=== PATIENT | female | born 1930 | race Caucasian/White ===

== ENCOUNTER 2017-05-01 15:59 | Inpatient (IN) | payer MEDICARE, OTHER ==
[~2017-05-01] VITALS: Ht 157.5 cm; Wt 63.5 kg
[2017-05-01] MEDS ORDERED: HYDROCODONE/APAP 5-325MG TABLET PO PRN (19:00)
[2017-05-01] MEDS ORDERED: MAGNESIUM HYDROXIDE 30 ML LIQUID UDC PO PRN (19:00)
[2017-05-01] MEDS ORDERED: ZOLPIDEM 5 MG TABLET PO PRN (19:00)
[2017-05-01] MEDS ORDERED: Z GUARD REMEDY PASTE 57 GM TUBE TOP PRN (19:00)
[2017-05-01] MEDS ORDERED: ONDANSETRON 4 MG/2 ML VIAL IV PRN (19:00)
[2017-05-01] MEDS ORDERED: ACETAMINOPHEN 325 MG TABLET PO PRN (19:00)
[2017-05-01] MEDS ORDERED: BACL10TA PO (19:16)
[2017-05-01] MEDS ORDERED: DONE5TAB34 PO (19:16)
[2017-05-01] MEDS ORDERED: ERGO500014 PO (19:16)
[2017-05-01] MEDS ORDERED: OMEP20TA20 PO (19:16)
[2017-05-01] MEDS ORDERED: ANAS1TAB8 PO (19:16)
[2017-05-01] MEDS ORDERED: ACET-73 PO (19:16)
[2017-05-01] MEDS ORDERED: LOSA1TAB9 PO (19:16)
[2017-05-01] MEDS ORDERED: DICL100G16 TP (19:16)
[2017-05-01] MEDS ORDERED: CYAN10009 PO (19:16)
[2017-05-01] MEDS ORDERED: MELO-107 PO (19:16)
[2017-05-01] MEDS ORDERED: CLOP75TA15 PO (19:16)
[2017-05-01] MEDS ORDERED: AMLO5TAB4 PO (19:16)
[2017-05-01] MEDS ORDERED: HYDR59LO5 TP (19:16)
[2017-05-01] MEDS ORDERED: Medication Not On Formulary EA (Meloxicam 15 MG) PO PRN (20:30)
[2017-05-01] MEDS ORDERED: VOLTAREN GEL XX PRN (20:30)
[2017-05-01 20:36] VITALS: BP 167/64
[2017-05-01] MEDS: DONEPEZIL 5 MG TABLET PO SCH (20:56)
[2017-05-01] MEDS ORDERED: DOCUSATE SODIUM 100 MG CAPSULE PO SCH (21:00)
--- NOTE | 2017-05-01 21:30 | NUR ---
Patient admitted to ARU at 1900. Transferred from [facility] in an ambulance via gurney. Patient stable at the time of transfer. Farsi speaking. AAO X3. No acute distress noted. No c/o pain or discomfort. Oriented patient to unit and equipment. MD notified regarding admission and medication reconciliation. Routine admission done. Safety measures maintained. Call light within reach. Will continue to monitor.
[2017-05-01] MEDS: HYDROCORTISONE 2.5 % RECTAL CREAM 28.35 GM TUBE RC SCH (22:31)
--- NOTE | 2017-05-02 05:43 | NUR ---
Patient slept intermittently at night. Assisted to the bathroom multiple times, had BM in my shift. Minimal assist with cane. All needs attended to promptly. Medications given as prescribed and needed. No acute distress noted. No c/o pain or discomfort. Will endorse to day shift RN. Continue to monitor.
[2017-05-02] MEDS: PANTOPRAZOLE SODIUM 40 MG TABLET.DR PO SCH (06:10)
[2017-05-02] MEDS ORDERED: PANTOPRAZOLE SODIUM 40 MG TABLET.DR PO SCH (07:00)
[2017-05-02 08:00] VITALS: BP 178/67
[2017-05-02] MEDS: BACLOFEN 10 MG TABLET PO SCH ×3 (08:23→17:08)
[2017-05-02] MEDS: CLOPIDOGREL 75 MG TABLET PO SCH (08:24)
[2017-05-02] MEDS: LOSARTAN POTASSIUM 50 MG TABLET PO SCH (08:24)
[2017-05-02] MEDS: MELOXICAM 7.5 MG TABLET PO SCH (08:25)
[2017-05-02] MEDS: HYDROCHLOROTHIAZIDE 12.5 MG CAPSULE PO SCH (08:25)
[2017-05-02] MEDS: CYANOCOBALAMIN 1,000 MCG TABLET PO SCH (08:28)
[2017-05-02] MEDS: AMLODIPINE 5 MG TABLET PO SCH (08:28)
[2017-05-02] MEDS: HYDROCORTISONE 2.5 % RECTAL CREAM 28.35 GM TUBE RC SCH ×2 (08:30→17:08)
[2017-05-02] MEDS: ANASTROZOLE 1 MG TABLET PO SCH (08:30)
[2017-05-02] MEDS ORDERED: HYDROCORTISONE 2.5% LOTION 59 ML BOTTLE TP SCH (09:00)
[2017-05-02] MEDS ORDERED: VOLTAREN GEL TP PRN (09:00)
[2017-05-02] MEDS ORDERED: MISCELLANEOUS MED TP PRN (10:00)
--- NOTE | 2017-05-02 10:39 | NUR ---
received report from shift coordinator nurse. pt seen on rounding. pt stable. bp elevated. md aware. pt given bp meds to decrease bp. will reassess bp. other vitals stable. pt tolerates room air. pt afebrile. no signs of acute distress. pt assisted to the bathroom. pt is min assist on transfer and contact on walking. pt is alert and oriented x2. fall precautions implemented. no dysphagia noted. will continue to monitor.
--- NOTE | 2017-05-02 19:23 | NUR ---
pt stable throughtout the day. pt shows confusion throuhgout the day. bp dropped to normal levels after meds were given. pt takes pills whole. pt had bm and voided. no new injuries noted. pt seen by md curran. no new orders. will endorse to shift supervisor rn nurse.
[2017-05-02 20:00] VITALS: BP 112/46
[2017-05-02] MEDS: DONEPEZIL 5 MG TABLET PO SCH (20:30)
[2017-05-02] MEDS: ACETAMINOPHEN ES 500 MG TABLET PO PRN (23:12)
[2017-05-03] MEDS: ACETAMINOPHEN ES 500 MG TABLET PO PRN (03:11)
--- NOTE | 2017-05-03 05:46 | NUR ---
PT SLEPT INTERMITTENTLY THROUGH THE NIGHT, PT WAS ALERT AND ORIENTED TO SELF ONLY AT START OF SHIFT BUT WAS COOPERATIVE, THE NIGHT PROGRESSED PT BECAME INTERMITTENTLY DISORIENTED AND RESTLESS. PT DENIED HAVING ANY DIZZINESS. PT WITH MINIMAL ASSISTANCE PERFORM ADL'S. ALL NEEDS MET, SAFETY MEASURES ARE IN PLACE, CALL LIGHT WITHIN REACH, BED ALARM IS ON. Addendum: 05/03/17 at 0643 by ANNA TESFAYE RN PT UPON WAKING UP WAS MORE ALERT AND LESS DISORIENTED THEN FDURING THE NIGHT. PT WAS ALERT TO SELF AND PLACE
[2017-05-03] MEDS: PANTOPRAZOLE SODIUM 40 MG TABLET.DR PO SCH (06:41)
--- NOTE | 2017-05-03 07:15 | NUR ---
Receievd patient asleep, lying on bed on a semi- yeboah's position with her call light within reach. Easily aroused. All needs were attended and anticipated. Will continue to monitor.
[2017-05-03 08:21] VITALS: BP 176/85
[2017-05-03] MEDS: CLOPIDOGREL 75 MG TABLET PO SCH (08:39)
[2017-05-03] MEDS: CYANOCOBALAMIN 1,000 MCG TABLET PO SCH (08:39)
[2017-05-03] MEDS: MELOXICAM 7.5 MG TABLET PO SCH (08:39)
[2017-05-03] MEDS: ANASTROZOLE 1 MG TABLET PO SCH (08:39)
[2017-05-03] MEDS: BACLOFEN 10 MG TABLET PO SCH ×3 (08:39→16:31)
[2017-05-03] MEDS: HYDROCHLOROTHIAZIDE 12.5 MG CAPSULE PO SCH (08:40)
[2017-05-03] MEDS: LOSARTAN POTASSIUM 50 MG TABLET PO SCH (08:40)
[2017-05-03] MEDS: AMLODIPINE 5 MG TABLET PO SCH (08:40)
[2017-05-03] MEDS: HYDROCORTISONE 2.5 % RECTAL CREAM 28.35 GM TUBE RC SCH ×2 (08:59→16:31)
--- NOTE | 2017-05-03 10:00 | NUR ---
RECEIVED CALL FROM PHARMACY REGARDING THE ERGOCALCIFEROL MEDICATION OF THE PATIENT TO ASK THE FAMILY WHAT DAY OF THE WEEK THE PATIENT TAKES THE MEDICATION. CALLED PATIENT'S SON BUT DID NOT ANSWER THE CALL, LEFT MESSAGE TO CALL BACK THE UNIT. CALLED PHARMACY AND INFORMED THAT MESSAGE WAS LEFT FOR THE SON. WILL FOLLOW- UP.
[2017-05-03] MEDS: ERGOCALCIFEROL 50,000 UNIT CAPSULE PO SCH (17:33)
--- NOTE | 2017-05-03 19:15 | NUR ---
Patient asleep, lying on bed on a semi- yeboah's position with no SOB, distress or discomforts noted. Easily aroused with no SOB, distress or any moaning. Call light placed within reach. Will endorse to incoming shift.
--- NOTE | 2017-05-03 19:30 | NUR ---
Received pt asleep and in semi- yeboah's position. Easily arousable when called by name and touch. No acute distress noted. Safety measures maintained. Call light within reach. Will continue to monitor.
[2017-05-03 19:45] VITALS: BP 134/56
[2017-05-03] MEDS: DONEPEZIL 5 MG TABLET PO SCH (20:20)
--- NOTE | 2017-05-04 05:33 | NUR ---
Patient slept comfortably t/o the night, assisted 2x to the bathroom. Vital signs stable. No acute distress noted. No c/o pain or discomfort. Medications given as prescribed and needed. Safety measures maintained. Call light within reach. Will endorse to day shift RN. Continue to monitor.
[2017-05-04] MEDS: PANTOPRAZOLE SODIUM 40 MG TABLET.DR PO SCH (06:09)
[2017-05-04 07:10] VITALS: BP 138/65
--- NOTE | 2017-05-04 07:15 | NUR ---
Received patient asleep, lying on bed with bed alarm on for safety, call light within reach. patient easily aroused. No SOB, distress or any discomforts noted at this time. All needs were attended and anticipated. Will continue to monitor.
[2017-05-04] MEDS: ANASTROZOLE 1 MG TABLET PO SCH (09:19)
[2017-05-04] MEDS: CYANOCOBALAMIN 1,000 MCG TABLET PO SCH (09:19)
[2017-05-04] MEDS: CLOPIDOGREL 75 MG TABLET PO SCH (09:19)
[2017-05-04] MEDS: BACLOFEN 10 MG TABLET PO SCH ×3 (09:19→16:29)
[2017-05-04] MEDS: MELOXICAM 7.5 MG TABLET PO SCH (09:19)
[2017-05-04] MEDS: HYDROCHLOROTHIAZIDE 12.5 MG CAPSULE PO SCH (09:19)
[2017-05-04] MEDS: LOSARTAN POTASSIUM 50 MG TABLET PO SCH (09:20)
[2017-05-04] MEDS: HYDROCORTISONE 2.5 % RECTAL CREAM 28.35 GM TUBE RC SCH ×2 (09:21→16:29)
[2017-05-04] MEDS: AMLODIPINE 5 MG TABLET PO SCH (09:21)
--- NOTE | 2017-05-04 09:54 | NUR ---
patient awake, sitting on her wheelchair at the rehab room doing exercises with the physical therapist with no difficulty or complaints of any pain or discomforts. Will continue to monitor.
--- NOTE | 2017-05-04 10:09 | NUR ---
Patient was visited by family member. Brought right and left hearing aids, updated inventory list.
--- NOTE | 2017-05-04 18:28 | NUR ---
PATIENT REMAINED STABLE THROUGHOUT THE DAY WITH NO SOB, DISTRESS OR ANY DISCOMFORTS. ALL DUE MEDICATIONS WERE GIVEN, ALL WERE TOLERATED WELL. ALL PATIENT'S NEEDS WERE ATTENDED AND ANTICIPATED. CALL LIGHT PLACED WITHIN REACH. WILL CONTINUE TO MONITOR. PATIENT WAS ENCOURAGED TO USE CALL LIGHT WHENEVER ASSISTANCE IS NEEDED.
--- NOTE | 2017-05-04 19:20 | NUR ---
Received patient resting comfortably in bed. AAO x3. Patient appears to be more conversational today than yesterday. Pt asked to turn on TV so she can watch. No acute distress noted. No c/o pain or discomfort. Safety measures maintained. Call light within reach. Will continue to monitor.
[2017-05-04 19:45] VITALS: BP 119/43
[2017-05-04] MEDS: DONEPEZIL 5 MG TABLET PO SCH (20:28)
--- NOTE | 2017-05-05 05:31 | NUR ---
Patient slept comfortably t/o the night. Assisted to the bathroom as needed. All needs attended promptly. Medications given as prescribed and needed. Will endorse to day shift RN. Continue to monitor.
[2017-05-05] MEDS: PANTOPRAZOLE SODIUM 40 MG TABLET.DR PO SCH (06:07)
[2017-05-05 07:10] VITALS: BP 151/71
[2017-05-05 07:50] LABS: BASOPHILS % (AUTO) 0.5 % (0.0-2.0); EOSINOPHILS # (AUTO) 0.3 K/uL (0.0-0.7); EOSINOPHILS % (AUTO) 3.8 % (0.0-7.0); HEMATOCRIT 38.6 % (37-47); HEMOGLOBIN 13.1 G/DL (12.0-16.0); LYMPHOCYTES # (AUTO) 2.3 K/UL (0.8-4.8); MEAN CORPUSCULAR HEMOGLOBIN 31.2 UUG (27.0-31.0); MEAN CORPUSCULAR HGB CONC 34 g/dL (32.0-37.0); MEAN CORPUSCULAR VOLUME 92.4 FL (81.0-99.0); MONOCYTES # (AUTO) 0.5 K/UL (0.1-1.30); MONOCYTES % (AUTO) 7.1 % (0.0-11.0); NEUTROPHILS # (AUTO) 3.6 K/UL (1.8-8.9); NEUTROPHILS % (AUTO) 54.6 % (38.5-71.5); PLATELET COUNT (AUTO) 243 K/UL (150-450); RED BLOOD CELL COUNT(AUTO) 4.18 MIL/UL (4.2-5.4); WHITE BLOOD COUNT (AUTO) 6.7 K/UL (4.0-11.2)
[2017-05-05 08:00] LABS: CARBON DIOXIDE 30 mmol/L (21-32); CHLORIDE 99 mmol/L (98-107); CHOLESTEROL 175 mg/dL (<200); GLUCOSE 95 mg/dL (74-106); HDL CHOLESTEROL 46 mg/dL (40-60); MAGNESIUM 1.9 mg/dL (1.8-2.4); POTASSIUM 4.1 mmol/L (3.5-5.1); TRIGLYCERIDES 155 MG/DL (30-150); UREA NITROGEN, BLOOD 23 mg/dL (7-18)
[2017-05-05] MEDS: BACLOFEN 10 MG TABLET PO SCH ×3 (08:24→16:46)
[2017-05-05] MEDS: LOSARTAN POTASSIUM 50 MG TABLET PO SCH (08:25)
[2017-05-05] MEDS: CYANOCOBALAMIN 1,000 MCG TABLET PO SCH (08:25)
[2017-05-05] MEDS: AMLODIPINE 5 MG TABLET PO SCH (08:25)
[2017-05-05] MEDS: CLOPIDOGREL 75 MG TABLET PO SCH (08:26)
[2017-05-05] MEDS: HYDROCORTISONE 2.5 % RECTAL CREAM 28.35 GM TUBE RC SCH ×2 (08:26→16:46)
[2017-05-05] MEDS: HYDROCHLOROTHIAZIDE 12.5 MG CAPSULE PO SCH (08:26)
[2017-05-05] MEDS: MELOXICAM 7.5 MG TABLET PO SCH (08:26)
[2017-05-05] MEDS: ANASTROZOLE 1 MG TABLET PO SCH (08:28)
[2017-05-05 19:40] VITALS: BP 107/44
[2017-05-05] MEDS: DONEPEZIL 5 MG TABLET PO SCH (22:02)
--- NOTE | 2017-05-06 07:00 | NUR ---
Pt received in bed, A/OX3, no distress noted. HOB elevated, on r/a, safety measures in place, Call light and personal belongings within reach.
[2017-05-06 07:15] VITALS: BP 121/53
[2017-05-06] MEDS: HYDROCHLOROTHIAZIDE 12.5 MG CAPSULE PO SCH (08:24)
[2017-05-06] MEDS: CLOPIDOGREL 75 MG TABLET PO SCH (08:24)
[2017-05-06] MEDS: PANTOPRAZOLE SODIUM 40 MG TABLET.DR PO SCH (08:24)
[2017-05-06] MEDS: AMLODIPINE 5 MG TABLET PO SCH (08:25)
[2017-05-06] MEDS: LOSARTAN POTASSIUM 50 MG TABLET PO SCH (08:25)
[2017-05-06] MEDS: MELOXICAM 7.5 MG TABLET PO SCH (08:25)
[2017-05-06] MEDS: BACLOFEN 10 MG TABLET PO SCH ×3 (08:26→17:33)
[2017-05-06] MEDS: CYANOCOBALAMIN 1,000 MCG TABLET PO SCH (08:26)
[2017-05-06] MEDS: HYDROCORTISONE 2.5 % RECTAL CREAM 28.35 GM TUBE RC SCH ×2 (08:26→17:00)
[2017-05-06] MEDS: ANASTROZOLE 1 MG TABLET PO SCH (08:27)
--- NOTE | 2017-05-06 18:20 | NUR ---
pt c/o of constipation, no prn medication available. Prune juice given with meals and not effective. Dr. Alvarez paged waiting for call back. Family visit pt today. No distress noted.
--- NOTE | 2017-05-06 19:30 | NUR ---
Received pt in bed, AAO x 2-3 with episodes of forgetfulness/confusion. No acute distress noted. Denies pain or discomfort at this time. Verbally responsive and able to make needs known. All safety measures and fall precautions maintained. Call light within reach. BRP with assistance. Will continue to monitor.
[2017-05-06 20:52] VITALS: BP 101/55
[2017-05-06] MEDS: DONEPEZIL 5 MG TABLET PO SCH (20:53)
[2017-05-07] MEDS: PANTOPRAZOLE SODIUM 40 MG TABLET.DR PO SCH (06:37)
--- NOTE | 2017-05-07 06:43 | NUR ---
Pt slept comfortably throughout the evening, getting up intermittently to use the restroom. FWW used with 1 person assistance. No acute distress noted. Denies pain or discomfort at this time. Safety maintained. Call light within reach. All needs met promptly. Kept clean and dry. Will endorse to AM shift. Will continue to monitor.
--- NOTE | 2017-05-07 07:45 | NUR ---
Received patient asleep. Not in any form of distress. Non-labored breathing. Call light within reach. Will continue to monitor.
[2017-05-07 08:16] VITALS: BP 141/71
[2017-05-07] MEDS: ANASTROZOLE 1 MG TABLET PO SCH (08:43)
[2017-05-07] MEDS: HYDROCORTISONE 2.5 % RECTAL CREAM 28.35 GM TUBE RC SCH ×2 (08:44→16:37)
[2017-05-07] MEDS: CLOPIDOGREL 75 MG TABLET PO SCH (08:46)
[2017-05-07] MEDS: MELOXICAM 7.5 MG TABLET PO SCH (08:46)
[2017-05-07] MEDS: BACLOFEN 10 MG TABLET PO SCH ×3 (08:46→16:37)
[2017-05-07] MEDS: AMLODIPINE 5 MG TABLET PO SCH (08:46)
[2017-05-07] MEDS: LOSARTAN POTASSIUM 50 MG TABLET PO SCH (08:46)
[2017-05-07] MEDS: CYANOCOBALAMIN 1,000 MCG TABLET PO SCH (08:46)
[2017-05-07] MEDS: HYDROCHLOROTHIAZIDE 12.5 MG CAPSULE PO SCH (08:46)
--- NOTE | 2017-05-07 14:41 | NUR ---
INTERDISCIPLINARY TEAM SUMMARY
[2017-05-07] MEDS ORDERED: BISACODYL 5 MG TABLET.DR PO PRN (16:30)
--- NOTE | 2017-05-07 18:29 | NUR ---
Tolerated therapy well. Not in any pain or distress. Call light within reach. Assisted to needs promptly
--- NOTE | 2017-05-07 19:30 | NUR ---
Received pt in bed, AAO x 2-3 with episodes of confusion. No acute distress noted. Denies pain or discomfort at this time. All safety measures and fall precautions maintained. Call light within reach. Will continue to monitor.
[2017-05-07 20:13] VITALS: BP 101/53
[2017-05-07] MEDS: DONEPEZIL 5 MG TABLET PO SCH (20:22)
[2017-05-07] MEDS: SIMVASTATIN 10 MG TABLET PO SCH (20:22)
[2017-05-07] MEDS: DOCUSATE SODIUM 100 MG CAPSULE PO SCH (20:22)
[2017-05-07] MEDS: ACETAMINOPHEN ES 500 MG TABLET PO PRN (20:44)
[2017-05-08] MEDS: PANTOPRAZOLE SODIUM 40 MG TABLET.DR PO SCH ×2 (06:39→06:49)
--- NOTE | 2017-05-08 07:01 | NUR ---
Pt slept comfortably throughout the evening, getting up intermittently to use the bathroom, calling for assistance before getting up. No complaints of pain/discomfort throughout shift. No acute distress noted. Kept clean and dry. All needs met promptly. Safety maintained. Will endorse to AM shift.
[2017-05-08 08:22] VITALS: BP 123/60
[2017-05-08] MEDS: AMLODIPINE 5 MG TABLET PO SCH (09:00)
[2017-05-08] MEDS: HYDROCHLOROTHIAZIDE 12.5 MG CAPSULE PO SCH (09:00)
[2017-05-08] MEDS: MELOXICAM 7.5 MG TABLET PO SCH (09:09)
[2017-05-08] MEDS: CLOPIDOGREL 75 MG TABLET PO SCH (09:09)
[2017-05-08] MEDS: CYANOCOBALAMIN 1,000 MCG TABLET PO SCH (09:09)
[2017-05-08] MEDS: LOSARTAN POTASSIUM 50 MG TABLET PO SCH (09:10)
[2017-05-08] MEDS: BACLOFEN 10 MG TABLET PO SCH ×3 (09:13→17:00)
[2017-05-08] MEDS: ANASTROZOLE 1 MG TABLET PO SCH (09:14)
[2017-05-08] MEDS: HYDROCORTISONE 2.5 % RECTAL CREAM 28.35 GM TUBE RC SCH ×2 (09:15→17:00)
--- NOTE | 2017-05-08 19:20 | NUR ---
Received patient resting comfortably in bed. AAO x2. No acute distress noted. No c/o pain or discomfort. Safety measures maintained. Call light within reach. Will continue to monitor.
[2017-05-08 19:40] VITALS: BP 125/55
[2017-05-08] MEDS: DONEPEZIL 5 MG TABLET PO SCH (20:17)
[2017-05-08] MEDS: SIMVASTATIN 10 MG TABLET PO SCH (20:17)
[2017-05-08] MEDS: DOCUSATE SODIUM 100 MG CAPSULE PO SCH (20:17)
--- NOTE | 2017-05-09 05:24 | NUR ---
Pt slept intermittently at night and assisted to the bathroom 4x. Using walker with minimum assist to ambulate. No acute distress noted. Medication given as prescribed and needed. Safety measures maintained. Call light within reach. Will endorse to day shift RN. Continue to monitor.
[2017-05-09] MEDS: PANTOPRAZOLE SODIUM 40 MG TABLET.DR PO SCH (06:17)
[2017-05-09 08:00] VITALS: BP 160/57
[2017-05-09] MEDS: CYANOCOBALAMIN 1,000 MCG TABLET PO SCH (09:01)
[2017-05-09] MEDS: MELOXICAM 7.5 MG TABLET PO SCH (09:01)
[2017-05-09] MEDS: LOSARTAN POTASSIUM 50 MG TABLET PO SCH (09:02)
[2017-05-09] MEDS: BACLOFEN 10 MG TABLET PO SCH ×3 (09:02→17:00)
[2017-05-09] MEDS: HYDROCHLOROTHIAZIDE 12.5 MG CAPSULE PO SCH (09:02)
[2017-05-09] MEDS: CLOPIDOGREL 75 MG TABLET PO SCH (09:02)
[2017-05-09] MEDS: AMLODIPINE 5 MG TABLET PO SCH (09:03)
[2017-05-09] MEDS: ANASTROZOLE 1 MG TABLET PO SCH (09:05)
[2017-05-09] MEDS: HYDROCORTISONE 2.5 % RECTAL CREAM 28.35 GM TUBE RC SCH ×2 (09:13→13:51)
--- NOTE | 2017-05-09 19:20 | NUR ---
Received pt sleeping comfortably in bed. Easily arouse when called by name and touch. No acute distress noted. No c/o pain or discomfort. Safety measures maintained. Call light and personal belongings within reach. Will continue to monitor.
[2017-05-09 20:27] VITALS: BP 127/73
[2017-05-09] MEDS: SENNOSIDES/DOCUSATE SODIUM TABLET PO SCH (20:32)
[2017-05-09] MEDS: SIMVASTATIN 10 MG TABLET PO SCH (20:32)
[2017-05-09] MEDS: DOCUSATE SODIUM 100 MG CAPSULE PO SCH (20:32)
[2017-05-09] MEDS: DONEPEZIL 5 MG TABLET PO SCH (20:32)
--- NOTE | 2017-05-10 05:35 | NUR ---
Pt slept comfortably during the night. Assisted to the bathroom multiple times. No acute distress noted. Pt compliant with her medications. All needs attended to promptly. Safety measures maintained. Call light and personal belongings within reach. Will endorse to day shift RN. Continue to monitor.
[2017-05-10] MEDS: PANTOPRAZOLE SODIUM 40 MG TABLET.DR PO SCH (06:10)
[2017-05-10 08:18] VITALS: BP 134/50
[2017-05-10] MEDS: CYANOCOBALAMIN 1,000 MCG TABLET PO SCH (08:41)
[2017-05-10] MEDS: BACLOFEN 10 MG TABLET PO SCH ×3 (08:42→17:50)
[2017-05-10] MEDS: CLOPIDOGREL 75 MG TABLET PO SCH (08:43)
[2017-05-10] MEDS: MELOXICAM 7.5 MG TABLET PO SCH (09:38)
[2017-05-10] MEDS: HYDROCHLOROTHIAZIDE 12.5 MG CAPSULE PO SCH (09:38)
[2017-05-10] MEDS: HYDROCORTISONE 2.5 % RECTAL CREAM 28.35 GM TUBE RC SCH ×2 (09:42→17:51)
--- NOTE | 2017-05-10 10:45 | NUR ---
SBAR report received at bedside, board updated. Pt awake, alert, and oriented x 2-3 with some confusion. No c/o pain, acute distress, or SOB. Labs WNL. Pt compliant with taking only part of routine morning medications, 3 at a time, will continue to administer per Pt request. All safety and comfort measures met at this time. Call light and personal items within reach. Will continue to monitor.
[2017-05-10] MEDS: ANASTROZOLE 1 MG TABLET PO SCH (12:28)
[2017-05-10] MEDS: LOSARTAN POTASSIUM 50 MG TABLET PO SCH (12:33)
[2017-05-10] MEDS: AMLODIPINE 5 MG TABLET PO SCH (13:39)
[2017-05-10] MEDS: ERGOCALCIFEROL 50,000 UNIT CAPSULE PO SCH (17:50)
--- NOTE | 2017-05-10 19:00 | NUR ---
Pt rested comfortably on and off this shift without therapy interruptions. Pt ate meals and tolerated medication administrations well this shift. No c/o pain or discomfort. Pt uses call light to address toileting needs, kept dry and clean. All safety and comfort needs met. Will endorse to on coming heavy forger helper.
--- NOTE | 2017-05-10 19:25 | NUR ---
Received pt resting comfortably in bed. AAOx3. Assisted to the bathroom. No acute distress noted. No c/o pain or discomfort. Safety measures maintained. Call light and personal belongings within reach. Will continue to monitor.
[2017-05-10 19:40] VITALS: BP 108/44
[2017-05-10] MEDS: DONEPEZIL 5 MG TABLET PO SCH (20:22)
[2017-05-10] MEDS: SIMVASTATIN 10 MG TABLET PO SCH (20:22)
[2017-05-10] MEDS: SENNOSIDES/DOCUSATE SODIUM TABLET PO SCH (20:23)
[2017-05-10] MEDS: DOCUSATE SODIUM 100 MG CAPSULE PO SCH (20:23)
--- NOTE | 2017-05-11 05:53 | NUR ---
Pt slept comfortably t/o the night. Assisted to the bathroom as needed. No acute distress noted. Medications given as prescribed and needed and pt has been compliant. All needs attended to promptly. Safety measures maintained. Will endorse to day shift RN. Continue to monitor.
[2017-05-11] MEDS: PANTOPRAZOLE SODIUM 40 MG TABLET.DR PO SCH (06:03)
[2017-05-11 08:05] VITALS: BP 161/61
[2017-05-11] MEDS: CLOPIDOGREL 75 MG TABLET PO SCH (09:20)
[2017-05-11] MEDS: BACLOFEN 10 MG TABLET PO SCH ×3 (09:20→17:50)
[2017-05-11] MEDS: LOSARTAN POTASSIUM 50 MG TABLET PO SCH (09:24)
[2017-05-11] MEDS: CYANOCOBALAMIN 1,000 MCG TABLET PO SCH (09:26)
[2017-05-11] MEDS: AMLODIPINE 5 MG TABLET PO SCH (09:26)
[2017-05-11] MEDS: HYDROCHLOROTHIAZIDE 12.5 MG CAPSULE PO SCH (09:26)
[2017-05-11] MEDS: MELOXICAM 7.5 MG TABLET PO SCH (09:26)
[2017-05-11] MEDS: ANASTROZOLE 1 MG TABLET PO SCH (09:29)
[2017-05-11] MEDS: HYDROCORTISONE 2.5 % RECTAL CREAM 28.35 GM TUBE RC SCH ×2 (09:36→17:51)
--- NOTE | 2017-05-11 19:30 | NUR ---
Received patient in bed. Alert and verbally responsive. Able to make needs known. Denies any pain and discomfort. No acute distress. No SOB. Kept clean and dry. All needs attended to promptly. Call light within reach. Will continue to monitor.
[2017-05-11 19:45] VITALS: BP 99/34
[2017-05-11] MEDS: DONEPEZIL 5 MG TABLET PO SCH (20:13)
[2017-05-11] MEDS: SIMVASTATIN 10 MG TABLET PO SCH (20:14)
[2017-05-11] MEDS: DOCUSATE SODIUM 100 MG CAPSULE PO SCH (20:14)
[2017-05-11] MEDS: SENNOSIDES/DOCUSATE SODIUM TABLET PO SCH (20:14)
[2017-05-12] MEDS: PANTOPRAZOLE SODIUM 40 MG TABLET.DR PO SCH (06:50)
[2017-05-12 07:44] VITALS: BP 133/61
--- NOTE | 2017-05-12 08:50 | NUR ---
Received patient awake, alert x3. Denies any pain. Not in any form of distress. Morning care done.
[2017-05-12] MEDS: ANASTROZOLE 1 MG TABLET PO SCH (08:56)
[2017-05-12] MEDS: MELOXICAM 7.5 MG TABLET PO SCH (08:58)
[2017-05-12] MEDS: LOSARTAN POTASSIUM 50 MG TABLET PO SCH (08:58)
[2017-05-12] MEDS: BACLOFEN 10 MG TABLET PO SCH ×3 (08:59→16:41)
[2017-05-12] MEDS: HYDROCHLOROTHIAZIDE 12.5 MG CAPSULE PO SCH (08:59)
[2017-05-12] MEDS: CYANOCOBALAMIN 1,000 MCG TABLET PO SCH (08:59)
[2017-05-12] MEDS: CLOPIDOGREL 75 MG TABLET PO SCH (09:00)
[2017-05-12] MEDS: HYDROCORTISONE 2.5 % RECTAL CREAM 28.35 GM TUBE RC SCH ×2 (09:00→16:41)
[2017-05-12] MEDS: AMLODIPINE 5 MG TABLET PO SCH (09:00)
--- NOTE | 2017-05-12 11:00 | NUR ---
Up with physical therapy, tolerating therapy well.
--- NOTE | 2017-05-12 18:46 | NUR ---
Resting comfortably in bed. Not in any form of distress. Denies any pain. Attended to needs promptly
[2017-05-12] MEDS: DONEPEZIL 5 MG TABLET PO SCH (20:23)
[2017-05-12] MEDS: DOCUSATE SODIUM 100 MG CAPSULE PO SCH (20:24)
[2017-05-12] MEDS: SIMVASTATIN 10 MG TABLET PO SCH (20:24)
[2017-05-12] MEDS: SENNOSIDES/DOCUSATE SODIUM TABLET PO SCH (20:29)
--- NOTE | 2017-05-12 20:55 | NUR ---
pt seen on rounding. vitals stable. pt tolerates room air. pt continues to maintain Baseline NIH scale. pt continues to swallow pills whole. pt had no new injuries seen. pt continues to be alert and oriented and shows signs of forgetfulness. will continue to monitor.
[2017-05-13] MEDS: PANTOPRAZOLE SODIUM 40 MG TABLET.DR PO SCH (06:23)
--- NOTE | 2017-05-13 06:51 | NUR ---
pt slept interminently throughout the night. pt continues to go to restroom with assist. pt continues to try to spit. no sob noted. pt stable throughout the day. will enodorse to shift lab technician nurse.
--- NOTE | 2017-05-13 07:40 | NUR ---
Received patient asleep, non-labored breathing. Call light within reach.
[2017-05-13 07:43] VITALS: BP 150/72
--- NOTE | 2017-05-13 08:45 | NUR ---
Patient in bed, eating breakfast. Tolerating well. Morning care done, assisted to bathroom with minimum assistance. Denies any pain. Not in apparent distress. call light within reach.
[2017-05-13] MEDS: HYDROCORTISONE 2.5 % RECTAL CREAM 28.35 GM TUBE RC SCH ×2 (09:02→16:37)
[2017-05-13] MEDS: CLOPIDOGREL 75 MG TABLET PO SCH (09:03)
[2017-05-13] MEDS: AMLODIPINE 5 MG TABLET PO SCH (09:03)
[2017-05-13] MEDS: BACLOFEN 10 MG TABLET PO SCH ×3 (09:03→16:37)
[2017-05-13] MEDS: HYDROCHLOROTHIAZIDE 12.5 MG CAPSULE PO SCH (09:03)
[2017-05-13] MEDS: CYANOCOBALAMIN 1,000 MCG TABLET PO SCH (09:03)
[2017-05-13] MEDS: MELOXICAM 7.5 MG TABLET PO SCH (09:03)
[2017-05-13] MEDS: LOSARTAN POTASSIUM 50 MG TABLET PO SCH (09:03)
[2017-05-13] MEDS: ANASTROZOLE 1 MG TABLET PO SCH (09:06)
--- NOTE | 2017-05-13 12:26 | NUR ---
Up with physical therapy. Tolerating therapy well. No other discomforts noted.
--- NOTE | 2017-05-13 16:33 | NUR ---
I agree Addendum: 05/13/17 at 1635 by BARON VELARDE OT Amended: Links added.
--- NOTE | 2017-05-13 18:30 | NUR ---
With daughter at bedside. No complaints of discomfort. Daughter informed of meeting for tomorrow.
[2017-05-13] MEDS: DONEPEZIL 5 MG TABLET PO SCH (20:31)
[2017-05-13] MEDS: SENNOSIDES/DOCUSATE SODIUM TABLET PO SCH (20:31)
[2017-05-13] MEDS: DOCUSATE SODIUM 100 MG CAPSULE PO SCH (20:31)
[2017-05-13] MEDS: SIMVASTATIN 10 MG TABLET PO SCH (20:32)
--- NOTE | 2017-05-13 20:59 | NUR ---
pt stable upon assessment. pt assisted to the bathroom. no loc changes based on NIH scale. no changes on vitals. pt had bm and voided. no pain noted. no new injuries noted. will continue to monitor.
[2017-05-13 21:35] VITALS: BP 130/61
--- NOTE | 2017-05-14 06:10 | NUR ---
pt stable throughout the night. pt continues to ask for asisstance to go the restroom at night. pt continues to be stable. no new injuries at night. will endorse to machinist 2nd shift nurse.
[2017-05-14] MEDS: PANTOPRAZOLE SODIUM 40 MG TABLET.DR PO SCH (06:31)
[2017-05-14 07:30] VITALS: BP 138/67
--- NOTE | 2017-05-14 07:55 | NUR ---
Received patient awake, alert, verbally responsive, afebrile, afebrile, not in any form of acute distress. She denies any pain or discomfort at this time. Assisted to her needs. Call light placed within reach. Reminded to use call light for assistance with verbalized understanding.
[2017-05-14] MEDS: ANASTROZOLE 1 MG TABLET PO SCH (08:54)
[2017-05-14] MEDS: AMLODIPINE 5 MG TABLET PO SCH (08:58)
[2017-05-14] MEDS: CLOPIDOGREL 75 MG TABLET PO SCH (08:58)
[2017-05-14] MEDS: BACLOFEN 10 MG TABLET PO SCH ×3 (08:58→17:22)
[2017-05-14] MEDS: CYANOCOBALAMIN 1,000 MCG TABLET PO SCH (08:58)
[2017-05-14] MEDS: HYDROCHLOROTHIAZIDE 12.5 MG CAPSULE PO SCH (08:58)
[2017-05-14] MEDS: MELOXICAM 7.5 MG TABLET PO SCH (08:58)
[2017-05-14] MEDS: LOSARTAN POTASSIUM 50 MG TABLET PO SCH (08:59)
[2017-05-14] MEDS: HYDROCORTISONE 2.5 % RECTAL CREAM 28.35 GM TUBE RC SCH ×2 (09:00→17:22)
--- NOTE | 2017-05-14 15:17 | NUR ---
INTERDISCIPLINARY TEAM CONFERENCE
[2017-05-14 15:56] VITALS: BP 105/46
--- NOTE | 2017-05-14 16:03 | NUR ---
Patient asleep in bed, wakes up to name. Non-labored breathing. will continue to monitor
[2017-05-14 19:49] VITALS: BP 112/63
--- NOTE | 2017-05-14 20:00 | NUR ---
NSG: Received patient awake, alert, verbally responsive, laying in bed. patient denies pain and discomfort at this time. Assisted with adl's. instructed to call nurse for pain and assistance via Call light. pleased call light within reach. patient verbalized understanding.
[2017-05-14] MEDS: DOCUSATE SODIUM 100 MG CAPSULE PO SCH (20:08)
[2017-05-14] MEDS: DONEPEZIL 5 MG TABLET PO SCH (20:09)
[2017-05-14] MEDS: SENNOSIDES/DOCUSATE SODIUM TABLET PO SCH (20:09)
[2017-05-14] MEDS: SIMVASTATIN 10 MG TABLET PO SCH (20:09)
[2017-05-15] MEDS: PANTOPRAZOLE SODIUM 40 MG TABLET.DR PO SCH (06:01)
--- NOTE | 2017-05-15 06:51 | NUR ---
NSG: REMAIN CALM AND COOPERATIVE WITH MEDICATION AND NURSING CARE. ASSISTED WITH ADL'S.PATIENT AMBULATE WITH FWW. NO C/O PAIN OR DISCOMFORT AT THIS TIME. CALL LIGHT W/IN REACH. RESTING IN BED COMFORTABLY.
--- NOTE | 2017-05-15 08:05 | NUR ---
Received patient resting bed. No complaints of pain. Morning care done. Call light within reach.
[2017-05-15] MEDS: CYANOCOBALAMIN 1,000 MCG TABLET PO SCH (09:28)
[2017-05-15] MEDS: ANASTROZOLE 1 MG TABLET PO SCH (09:28)
[2017-05-15] MEDS: HYDROCHLOROTHIAZIDE 12.5 MG CAPSULE PO SCH (09:28)
[2017-05-15] MEDS: MELOXICAM 7.5 MG TABLET PO SCH (09:29)
[2017-05-15] MEDS: AMLODIPINE 5 MG TABLET PO SCH (09:29)
[2017-05-15] MEDS: BACLOFEN 10 MG TABLET PO SCH ×3 (09:29→17:16)
[2017-05-15] MEDS: LOSARTAN POTASSIUM 50 MG TABLET PO SCH (09:29)
[2017-05-15] MEDS: CLOPIDOGREL 75 MG TABLET PO SCH (09:29)
[2017-05-15] MEDS: HYDROCORTISONE 2.5 % RECTAL CREAM 28.35 GM TUBE RC SCH ×2 (09:30→17:16)
[2017-05-15 09:58] VITALS: BP 143/56
--- NOTE | 2017-05-15 11:00 | NUR ---
Up with physical therapy. Able to ambulate well. No discomforts noted.
--- NOTE | 2017-05-15 17:32 | NUR ---
Sitting in chair. Tolerated dinner well. Not in apparent distress. No dizziness noted. Call light within reach.
--- NOTE | 2017-05-15 19:30 | NUR ---
Patient sleeping with no s/s of distress. Respirations even and unlabored. Call light within reach. Will continue to monitor.
[2017-05-15] MEDS: SIMVASTATIN 10 MG TABLET PO SCH (21:00)
[2017-05-15] MEDS: DONEPEZIL 5 MG TABLET PO SCH (21:00)
[2017-05-15] MEDS: SENNOSIDES/DOCUSATE SODIUM TABLET PO SCH (21:00)
[2017-05-15] MEDS: DOCUSATE SODIUM 100 MG CAPSULE PO SCH (21:00)
[2017-05-15 21:49] VITALS: BP 111/51
--- NOTE | 2017-05-16 06:55 | NUR ---
Patient awake, lying in bed. No distress noted. No complaints of pain. Slept well through the night. Refused meds despite health teaching. Needs attended. Kept comfortable. Assisted during ambulation. Call light kept within reach. Frequent checks done. Endorsed accordingly.
[2017-05-16] MEDS: PANTOPRAZOLE SODIUM 40 MG TABLET.DR PO SCH ×2 (07:00→09:46)
[2017-05-16 07:45] VITALS: BP 128/58
[2017-05-16] MEDS: AMLODIPINE 5 MG TABLET PO SCH ×2 (09:00→09:47)
[2017-05-16] MEDS: HYDROCORTISONE 2.5 % RECTAL CREAM 28.35 GM TUBE RC SCH ×3 (09:00→17:00)
[2017-05-16] MEDS: HYDROCHLOROTHIAZIDE 12.5 MG CAPSULE PO SCH ×2 (09:00→09:47)
[2017-05-16] MEDS: MELOXICAM 7.5 MG TABLET PO SCH ×2 (09:00→09:46)
[2017-05-16] MEDS: LOSARTAN POTASSIUM 50 MG TABLET PO SCH ×2 (09:00→09:47)
[2017-05-16] MEDS: BACLOFEN 10 MG TABLET PO SCH ×4 (09:00→17:00)
[2017-05-16] MEDS: ANASTROZOLE 1 MG TABLET PO SCH ×2 (09:00→09:51)
[2017-05-16] MEDS: CLOPIDOGREL 75 MG TABLET PO SCH ×2 (09:00→09:47)
--- NOTE | 2017-05-16 09:45 | NUR ---
Patient refusing to take her morning medications stating "They're not working for me anymore" . Patient educated on each individual medication, and still refusing to take them, denies pain or any discomfort at this time.
[2017-05-16] MEDS: CYANOCOBALAMIN 1,000 MCG TABLET PO SCH (09:47)
--- NOTE | 2017-05-16 13:39 | NUR ---
Patient refused to take her medications. MD augustin.
--- NOTE | 2017-05-16 17:38 | NUR ---
RECEIVED ORDER FROM DR. ROBERTSON TO DISCHARGE PATIENT HOME WITH HOME HEALTH PER PMD. ORDERS NOTED AND CARRIED OUT.
--- NOTE | 2017-05-16 18:15 | NUR ---
PATIENT WAS DISCHARGED HOME WITH FAMILY MEMBER, TYRESE IN STABLE CONDITION. ALL BELONGINGS WERE COMPLETE NO SOB, NO DISTRESS OR ANY COMPLAINTS OF PAIN UPON DISCHARGE. HEALTH TEACHINGS WERE PROVIDED TO PATIENT AND FAMILY MEMBER, TYRESE, VERBALIZED UNDERSTANDING. INSTRUCTED TYRESE THAT PATIENT IS SCHEDULED WITH DR. BAILEY ON 05/20/2017 AT 3:45 PM. PATIENT WAS ACCOMPANIED TO PRIVATE VEHICLE WITH TYRESE VIA WHEELCHAIR IN STABLE CONDITION.
--- NOTE | 2017-05-16 18:19 | NUR ---
Patient taken home by niece via wheelchair. Dcd instructions and documentation done by supervisor in chargeMartha Bar. Patient left the unit AAOx4. vitals signs stable as reported.
== END 2017-05-16 18:20 | disposition home health service (06) | DRG 56 ==
PROVIDERS: ADMIT Physical Medicine & Rehabilitation Pain Medicine; ATTEND Physical Medicine & Rehabilitation Pain Medicine
DX: I69.398 Other sequelae of cerebral infarction (principal); G93.40 Encephalopathy, unspecified; G30.9 Alzheimer's disease, unspecified; E11.9 Type 2 diabetes mellitus without complications; F02.80 Dementia in other diseases classified elsewhere, unspecified severity, without behavioral disturbance, psychotic disturbance, mood disturbance, and anxiety; E78.5 Hyperlipidemia, unspecified; G89.29 Other chronic pain; H91.90 Unspecified hearing loss, unspecified ear; S00.93XD Contusion of unspecified part of head, subsequent encounter; I10 Essential (primary) hypertension; Z85.3 Personal history of malignant neoplasm of breast; M54.5 Low back pain; X58.XXXD Exposure to other specified factors, subsequent encounter; Z82.49 Family history of ischemic heart disease and other diseases of the circulatory system; R05 Cough; R55 Syncope and collapse; R53.1 Weakness; R26.89 Other abnormalities of gait and mobility
CPT/HCPCS: 36415; 83735; 84100; 85025; 92526; 92610; 97110; 97112; 97116; 97165; 97530; 97535; A4663